=== PATIENT | female | born 1950 | race Caucasian/White ===

== ENCOUNTER 2020-04-16 08:44 | Outpatient (CLI) | payer MEDICARE, BC ==
--- NOTE | 2020-04-16 09:16 | MMO ---
Bilateral MAMMO Bilat Screen [facility]. CLINICAL HISTORY: Patient is 69 years old and is seen for screening. The patient has no family history of breast cancer. The patient has no personal history of cancer. VIEWS: The views performed were: bilateral craniocaudal with tomosynthesis and bilateral mediolateral oblique with tomosynthesis. FILMS COMPARED: The present examination has been compared to prior imaging studies performed at [facility] on 11/04/2011, 11/03/2012, 02/10/2015 and 05/27/2016. This study has been interpreted with the assistance of computer-aided detection. MAMMOGRAM FINDINGS: There are scattered fibroglandular densities. There are no suspicious masses, suspicious calcifications, or new areas of architectural distortion. IMPRESSION: THERE IS NO MAMMOGRAPHIC EVIDENCE OF MALIGNANCY. A ROUTINE FOLLOW-UP MAMMOGRAM IN 1 YEAR IS RECOMMENDED. THE RESULTS OF THIS EXAM WERE SENT TO THE PATIENT. ACR BI-RADS Category 1 - Negative MAMMOGRAPHY NOTE: 1. A negative mammogram report should not delay a biopsy if a dominant of clinically suspicious mass is present. 2. Approximately 10% to 15% of breast cancers are not detected by mammography. 3. Adenosis and dense breasts may obscure an underlying neoplasm. Reported by: VIDA VERDE MD Electonically Signed: [id number]
== END 2020-04-16 08:45 | disposition home or self-care (01) ==
LOC: BICMAMMO 08:44
PROVIDERS: ATTEND Family Medicine
DX: Z12.31 Encounter for screening mammogram for malignant neoplasm of breast (principal)
CPT/HCPCS: 77063; 77067

== ENCOUNTER 2021-03-18 10:59 | Outpatient (CLI) | payer MEDICARE, BC ==
[2021-03-18 11:56] LABS: #Basophils 0.1 10x3/uL (0.0-0.2); #Eosinphils 0.8 10x3/uL (0.0-0.5); #Monocytes 0.6 10x3/uL (0.0-1.1); #Neutrophils 4.4 10x3/uL (1.5-8.4); %Eosinophils 10.7 % (0.0-6.0); %Lymphocytes 23.6 % (18.0-47.0); %Monocytes 7.7 % (0.0-10.0); %Neutrophils 56.9 % (40.0-75.0); Hemoglobin 13.5 g/dL (12.0-15.5); Mean Corpuscular HGB CONC 32.6 g/dL (32.0-36.0); Mean Corpuscular Hemoglobin 30.3 pg (27.0-33.0); Mean Corpuscular Volume 92.8 fl (81.6-98.3); Mean Platelet Volume 8.8 fl (7.4-10.4); Platelet Count 259 10x3/uL (150-450); RBC Distribution Width 13.9 % (11.5-14.5); Red Blood Cell (RBC) Count 4.46 10x6/uL (3.90-5.03); White Blood Cell (WBC) Count 7.7 10x3/uL (3.5-10.5)
[2021-03-18 12:08] LABS: Bilirubin Neg (Negative); Blood, Urine Negative (Negative); Clarity Clear (Clear); Glucose, Urine (Dipstick) Normal (Negative); Ketone, Urine 5 mg/dL (Negative); Leukocyte 500 (Negative); Nitrite Negative (Negative); Protein, Urine (Dipstick) 30 mg/dl (Neg-Trace); Specific Gravity, Urine 1.025 (1.002-1.036); Urobilinogen Normal mg/dL (Less than 2)
[2021-03-18 12:10] LABS: Anion Gap 12 mmol/L (10-20); BUN (Urea Nitrogen) 14 mg/dL (9.8-20.1); Calc. Creatinine Clearance 0 mL/min (70-130); Calcium 8.7 mg/dL (7.8-10.44); Carbon Dioxide 26 mmol/L (23-31); Chloride 103 mmol/L (98-107); Glucose 100 mg/dL (83-110); Potassium 4.1 mmol/L (3.5-5.1); Sodium 137 mmol/L (136-145)
[2021-03-18 12:30] LABS: INR-International Normal Ratio 0.9; Prothrombin Time 10.3 sec (9.5-12.1)
[2021-03-18 21:33] LABS: SARS-CoV-2 PCR by NAA Not Detected (NotDetected)
== END 2021-03-18 11:00 | disposition home or self-care (01) ==
LOC: LABBT 10:59
PROVIDERS: ATTEND Orthopaedic Surgery
DX: Z01.818 Encounter for other preprocedural examination (principal); M17.12 Unilateral primary osteoarthritis, left knee; Z20.822 Contact with and (suspected) exposure to COVID-19
CPT/HCPCS: 80048; 81003; 85025; 85610; 87081; 93005; U0003; U0005; 93010

== ENCOUNTER 2021-03-23 07:36 | Observation (INO) | payer MEDICARE, BC ==
[2021-03-23] MEDS ORDERED: Tranexamic Acid 1,000 MG/10 ML VIAL ONE (08:44)
[2021-03-23] MEDS ORDERED: Sodium Chloride 0.9% 100 ML ONE (08:44)
[2021-03-23] MEDS ORDERED: Vancomycin 1 GM/200 ML BAG ONE (08:45)
[2021-03-23] MEDS ORDERED: Fentanyl 100 MCG/2 ML VIAL ONE ×4 (09:34→14:45)
[2021-03-23] MEDS ORDERED: Midazolam HCl 2 mg/2 ml Vial ONE (09:34)
[2021-03-23] MEDS ORDERED: Bupivacaine PF 0.5% 30 ML VIAL ONE (10:09)
[2021-03-23] MEDS ORDERED: ceFAZolin 2 GM/DEX 5% 100 ML BAG ONE ×3 (10:23→10:25)
[2021-03-23] MEDS ORDERED: Dexamethasone 20 MG/5 ML VIAL ONE (10:42)
[2021-03-23] MEDS ORDERED: PROPOFOL 200 MG/20 ML VIAL ONE (10:42)
[2021-03-23] MEDS ORDERED: Ondansetron PF 4 MG/2 ML Vial ONE (10:42)
[2021-03-23] MEDS ORDERED: Bupivacaine HCl 0.5%/Epinephrine 1:200,000/PF 30 ml Vial ONE (10:42)
[2021-03-23] MEDS ORDERED: diphenhydrAMINE 25 MG CAP PO PRN (10:46)
[2021-03-23] MEDS ORDERED: Fentanyl 100 MCG/2 ML VIAL SLOW IVP PRN (10:46)
[2021-03-23] MEDS ORDERED: Ondansetron PF 4 MG/2 ML Vial IVP PRN ×2 (10:46→11:00)
[2021-03-23] MEDS ORDERED: Promethazine HCl 25 MG/ML VIAL IM PRN ×2 (10:46→11:00)
[2021-03-23] MEDS ORDERED: Acetaminophen 325 MG TAB PO PRN (10:46)
[2021-03-23] MEDS ORDERED: traMADol HCl 50 MG TAB PO PRN ×2 (10:46→11:00)
[2021-03-23] MEDS ORDERED: Zolpidem Tartrate 5 MG TAB PO PRN ×2 (10:46→11:00)
[2021-03-23] MEDS ORDERED: HYDROcodone/Acetaminophen 10/325 mg Tablet PO PRN ×4 (10:46→11:00)
[2021-03-23] MEDS ORDERED: Fentanyl 100 MCG/2 ML VIAL IV PRN (10:48)
[2021-03-23] MEDS ORDERED: Ropivacaine 0.2% 550 ML 550 ML NERVE BLCK SCH (11:00)
[2021-03-23] MEDS ORDERED: Ketorolac Tromethamine 30 MG/ML VIAL IM SCH (14:00)
[2021-03-23] MEDS ORDERED: Ketorolac Tromethamine 30 MG/ML VIAL ONE (15:21)
[2021-03-23] MEDS: Ketorolac Tromethamine 30 MG/ML VIAL IVP SCH ×3 (15:26→23:08)
[2021-03-23] MEDS: Sodium Chloride 0.9% 1,000 ML IV SCH ×2 (15:28→20:07)
[2021-03-23] MEDS: traMADol HCl 50 MG TAB PO PRN (18:36)
[2021-03-23] MEDS: ceFAZolin 2 GM/Dextrose 50 ML 2 GM in Premix Bag 1 BAG IVPB SCH (19:58)
[2021-03-23] MEDS: Aspirin 81 mg Enteric Coated Tablet PO SCH (20:01)
[2021-03-23] MEDS: Oxybutynin 5 MG TAB PO SCH (20:01)
[2021-03-23] MEDS: Fluticasone Propionate Nasal Spray 16 gm Bottle NASAL SCH (20:23)
[2021-03-24] MEDS: ceFAZolin 2 GM/Dextrose 50 ML 2 GM in Premix Bag 1 BAG IVPB SCH (02:12)
[2021-03-24] MEDS: Ketorolac Tromethamine 30 MG/ML VIAL IVP SCH ×4 (05:21→23:40)
[2021-03-24 06:40] LABS: Hemoglobin 11.4 g/dL (12.0-16.0); Mean Corpuscular HGB CONC 32.7 g/dL (32.0-36.0); Mean Corpuscular Hemoglobin 30.8 pg (27.0-31.0); Mean Corpuscular Volume 94.2 fL (78.0-98.0); Mean Platelet Volume 6.1 fL (7.4-10.4); Platelet Count 240 thou/uL (130-400); RBC Distribution Width 12.5 % (11.5-14.5); White Blood Cell (WBC) Count 10.1 thou/uL (4.8-10.8)
[2021-03-24] MEDS: Senokot S 8.6-50 MG TAB PO SCH ×2 (07:52→21:25)
[2021-03-24] MEDS: Multivitamin W/ Minerals 1 TAB PO SCH (07:52)
[2021-03-24] MEDS: Bupropion 150 MG XL TAB PO SCH (07:53)
[2021-03-24] MEDS: Venlafaxine HCl XR 150 MG CAP PO SCH (07:53)
[2021-03-24] MEDS: Ferrous Gluconate 324 MG TAB PO SCH ×2 (07:53→21:25)
[2021-03-24] MEDS: traMADol HCl 50 MG TAB PO PRN ×3 (07:53→21:24)
[2021-03-24] MEDS: Aspirin 81 mg Enteric Coated Tablet PO SCH ×2 (07:53→21:25)
[2021-03-24] MEDS: Sodium Chloride 0.9% 1,000 ML IV SCH ×3 (09:44→22:57)
[2021-03-24] MEDS: Oxybutynin 5 MG TAB PO SCH (21:25)
[2021-03-24] MEDS: Fluticasone Propionate Nasal Spray 16 gm Bottle NASAL SCH (21:25)
[2021-03-25] MEDS: Ketorolac Tromethamine 30 MG/ML VIAL IVP SCH (05:56)
[2021-03-25] MEDS: Multivitamin W/ Minerals 1 TAB PO SCH (08:31)
[2021-03-25] MEDS: Aspirin 81 mg Enteric Coated Tablet PO SCH (08:31)
[2021-03-25] MEDS: Ferrous Gluconate 324 MG TAB PO SCH (08:31)
[2021-03-25] MEDS: Venlafaxine HCl XR 150 MG CAP PO SCH (08:31)
[2021-03-25] MEDS: Bupropion 150 MG XL TAB PO SCH (08:31)
[2021-03-25] MEDS: Senokot S 8.6-50 MG TAB PO SCH (08:31)
[2021-03-25] MEDS: traMADol HCl 50 MG TAB PO PRN (11:36)
[2021-03-25 16:31] VITALS: BP 130/77; TEMP 98.4
== END 2021-03-25 16:55 | disposition home health service (06) ==
LOC: SDC 07:36 → SURG B 18:06
PROVIDERS: ADMIT Orthopaedic Surgery; ATTEND Orthopaedic Surgery
PROC: 0SRD0J9 Replacement of Left Knee Joint with Synthetic Substitute, Cemented, Open Approach (ICD-10-PCS; principal; 2021-03-23)
PROC: 8E0YXBZ Computer Assisted Procedure of Lower Extremity (ICD-10-PCS; 2021-03-23)
PROC: 3E0T3BZ Introduction of Anesthetic Agent into Peripheral Nerves and Plexi, Percutaneous Approach (ICD-10-PCS; 2021-03-23)
DX: M17.12 Unilateral primary osteoarthritis, left knee (principal); M06.9 Rheumatoid arthritis, unspecified; J45.909 Unspecified asthma, uncomplicated; Z79.899 Other long term (current) drug therapy; Z88.2 Allergy status to sulfonamides; Z96.651 Presence of right artificial knee joint
CPT/HCPCS: 20985; 27447; 64448; 73560; 85027; 96374; 96375; 96376 ×3; 97110 ×2; 97116 ×3; 97139 ×2; 97530; A4306; C1713; C1776; G0378 ×3; 36415; J0690; J1100; J1885; J2250; J2405; J2704; J2795; J3010; J3370; J3490; J7050; S0020

== ENCOUNTER 2021-04-16 11:16 | Inpatient (IN) | payer MEDICARE, BC ==
[~2021-04-16 11:16] MED LIST: Iopamidol 370 76% 100 ML VIAL ONE
[2021-04-16 11:48] LABS: #Eosinphils 0.5 thou/uL (0.0-0.7); #Lymphocytes 1.6 thou/uL (1.20-3.40); #Monocytes 0.6 thou/uL (0.11-0.59); #Neutrophils 3.2 thou/uL (1.40-6.50); %Basophils 0.7 % (0.0-1.0); %Eosinophils 7.7 % (0.0-10.0); %Lymphocytes 27.6 % (21.0-51.0); %Monocytes 9.3 % (0.0-10.0); %Neutrophils 54.7 % (42.0-75.0); Hemoglobin 13.2 g/dL (12.0-16.0); Mean Corpuscular Hemoglobin 29.9 pg (27.0-31.0); Mean Corpuscular Volume 96.5 fL (78.0-98.0); Platelet Count 343 thou/uL (130-400); RBC Distribution Width 12.5 % (11.5-14.5); White Blood Cell (WBC) Count 5.9 thou/uL (4.8-10.8)
[2021-04-16 12:16] LABS: ALT (SGPT) 13 U/L (8-55); AST (SGOT) 19 U/L (5-34); Albumin 3.8 g/dL (3.4-4.8); Alkaline Phosphatase 113 U/L (40-110); Anion Gap 13 mmol/L (10-20); BUN (Urea Nitrogen) 14 mg/dL (9.8-20.1); Bilirubin, Total 0.3 mg/dL (0.2-1.2); Calc. Creatinine Clearance 0 mL/min (70-130); Calcium 9.4 mg/dL (7.8-10.44); Carbon Dioxide 25 mmol/L (23-31); Chloride 102 mmol/L (98-107); Globulin 3.4 g/dL (2.4-3.5); Glucose 92 mg/dL (83-110); Lipase 35 U/L (8-78); Potassium 3.9 mmol/L (3.5-5.1); Protein, Total 7.2 g/dL (5.8-8.1); Sodium 136 mmol/L (136-145)
[2021-04-16] MEDS ORDERED: Morphine 4 MG/ML VIAL ONE ×2 (14:14→16:35)
[2021-04-16] MEDS ORDERED: Ondansetron PF 4 MG/2 ML Vial ONE ×4 (14:14→17:43)
[2021-04-16 15:23] LABS: Bilirubin Negative (Negative); Blood, Urine Negative (Negative); Clarity Clear (Clear); Glucose, Urine (Dipstick) Normal (Negative); Ketone, Urine Trace mg/dL (Negative); Leukocyte Negative Leu/uL (Negative); Nitrite Negative (Negative); Protein, Urine (Dipstick) Negative (Neg-Trace); Specific Gravity, Urine 1.013 (1.002-1.036); Urobilinogen Normal mg/dL (Less than 2)
[2021-04-16] MEDS ORDERED: Fentanyl 250 MCG/5 ML VIAL ONE (16:21)
[2021-04-16] MEDS ORDERED: Bupivacaine PF 0.5% 30 ML VIAL ONE (16:59)
[2021-04-16] MEDS ORDERED: EPINEPHrine 1 MG/ML AMP ONE (16:59)
[2021-04-16 17:34] LABS: SARS-CoV-2 NAA Rapid Test Not Detected (NotDetected)
[2021-04-16] MEDS ORDERED: Lidocaine 1% PF 5 ML VIAL ONE (17:43)
[2021-04-16] MEDS ORDERED: Dexamethasone 20 MG/5 ML VIAL ONE (17:43)
[2021-04-16] MEDS ORDERED: Succinylcholine 200 MG/10 ml SYRINGE FS ONE (17:43)
[2021-04-16] MEDS ORDERED: PROPOFOL 200 MG/20 ML VIAL ONE (17:43)
[2021-04-16] MEDS ORDERED: PHENYLEPHRINE-NS 100 MCG/ML 10 ML SYRINGE ONE ×2 (17:43→18:06)
[2021-04-16] MEDS ORDERED: Rocuronium Bromide 10 MG/ML (10ML VIAL) ONE (17:43)
[2021-04-16] MEDS ORDERED: Phenylephrine 1% Nasal Spray 15 ML BOT ONE (18:05)
[2021-04-16] MEDS ORDERED: Phenylephrine 0.25% Nasal Spray 15 ML BOT ONE (18:06)
[2021-04-16] MEDS ORDERED: Morphine 4 MG/ML VIAL SLOW IVP PRN ×2 (18:45)
[2021-04-16] MEDS ORDERED: hydrALAZINE 20 MG/ML VIAL SLOW IVP PRN (18:45)
[2021-04-16] MEDS ORDERED: Ondansetron PF 4 MG/2 ML Vial IVP PRN (18:45)
[2021-04-16] MEDS ORDERED: Ondansetron ODT 4 MG TAB PO PRN (18:45)
[2021-04-16] MEDS ORDERED: traMADol HCl 50 MG TAB PO PRN (18:45)
[2021-04-16] MEDS ORDERED: Acetaminophen 500 MG TAB PO PRN (18:48)
[2021-04-16] MEDS ORDERED: Ketorolac Tromethamine 30 MG/ML VIAL IVP PRN (18:48)
[2021-04-16] MEDS ORDERED: Ketorolac Tromethamine 30 MG/ML VIAL ONE (18:49)
[2021-04-16] MEDS ORDERED: HYDROcodone/Acetaminophen 10/325 mg Tablet PO PRN ×2 (18:50)
[2021-04-16] MEDS ORDERED: PACU-Morphine 4MG/ML VIAL SLOW IVP PRN (18:51)
[2021-04-16] MEDS ORDERED: Ondansetron HCl/PF 4 MG/2 ML Vial IVP PRN (18:51)
[2021-04-16] MEDS ORDERED: HYDROmorphone 2 MG/ML VIAL SLOW IVP PRN (18:51)
[2021-04-16] MEDS ORDERED: Promethazine HCl 25 MG/ML VIAL IVPB PRN (18:51)
[2021-04-16] MEDS ORDERED: Promethazine HCl 25 MG/ML VIAL IM PRN (18:51)
[2021-04-16] MEDS ORDERED: Fentanyl 100 MCG/2 ML VIAL ONE (19:17)
[2021-04-16] MEDS ORDERED: Ketorolac Tromethamine 30 MG/ML VIAL IVP SCH (20:30)
[2021-04-16 20:45] VITALS: BMI 24.9
[2021-04-16] MEDS: Lactated Ringer's 1,000 ML IV SCH (20:52)
[2021-04-16] MEDS ORDERED: Oxybutynin 5 MG TAB PO SCH (21:00)
[2021-04-16] MEDS ORDERED: Fluticasone Propionate Nasal Spray 16 gm Bottle NASAL SCH (21:00)
[2021-04-16] MEDS: Aspirin 81 mg Enteric Coated Tablet PO SCH (21:03)
[2021-04-16] MEDS ORDERED: Enoxaparin Sodium 40 MG/0.4 ML SYRINGE SC SCH (22:15)
[2021-04-16] MEDS ORDERED: Famotidine 20 MG TAB PO SCH (22:30)
[2021-04-16] MEDS ORDERED: Albuterol 200 PUFF (6.7GM INHALER) INH PRN (23:27)
[2021-04-17 05:55] LABS: #Lymphocytes 0.7 thou/uL (1.20-3.40); #Monocytes 0.3 thou/uL (0.11-0.59); #Neutrophils 4.8 thou/uL (1.40-6.50); %Basophils 0.1 % (0.0-1.0); %Eosinophils 0.1 % (0.0-10.0); %Lymphocytes 12.7 % (21.0-51.0); %Neutrophils 82.2 % (42.0-75.0); Hemoglobin 12.6 g/dL (12.0-16.0); Mean Corpuscular HGB CONC 31.2 g/dL (32.0-36.0); Mean Corpuscular Hemoglobin 30.3 pg (27.0-31.0); Mean Platelet Volume 6.3 fL (7.4-10.4); Platelet Count 302 thou/uL (130-400); RBC Distribution Width 12.5 % (11.5-14.5); Red Blood Cell (RBC) Count 4.14 mill/uL (4.20-5.40); White Blood Cell (WBC) Count 5.8 thou/uL (4.8-10.8)
[2021-04-17] MEDS: Lactated Ringer's 1,000 ML IV SCH ×2 (06:28→13:24)
[2021-04-17] MEDS: Aspirin 81 mg Enteric Coated Tablet PO SCH (08:48)
[2021-04-17] MEDS ORDERED: Polyethylene Glycol 3350 17 GM Packet PO SCH (09:00)
[2021-04-17] MEDS ORDERED: Famotidine 20 MG TAB PO SCH (09:00)
[2021-04-17] MEDS ORDERED: Venlafaxine HCl XR 150 MG CAP PO SCH (09:00)
[2021-04-17] MEDS ORDERED: Bupropion 150 MG XL TAB PO SCH (09:00)
[2021-04-17 12:07] VITALS: BP 129/82; TEMP 98.5
[2021-04-17] MEDS ORDERED: Enoxaparin Sodium 40 MG/0.4 ML SYRINGE SC SCH (21:00)
== END 2021-04-17 15:15 | disposition home or self-care (01) | DRG 355 ==
LOC: ERS 11:16 → SURG B 18:56
PROVIDERS: ADMIT Specialist; ATTEND Specialist
PROC: 0WQF0ZZ Repair Abdominal Wall, Open Approach (ICD-10-PCS; principal; 2021-04-16)
DX: K43.6 Other and unspecified ventral hernia with obstruction, without gangrene (principal); J45.909 Unspecified asthma, uncomplicated; Z96.653 Presence of artificial knee joint, bilateral; Z20.822 Contact with and (suspected) exposure to COVID-19; Z88.2 Allergy status to sulfonamides; Z90.710 Acquired absence of both cervix and uterus
CPT/HCPCS: 36415; 74177; 80053; 81003; 83690; 85025; 93005; 96374; 96375; 96376; J0171; J1100; J1650; J1885; J1956; J2270; J2405; J2704; J3010; J7120; S0020; U0002